=== PATIENT | female | born 1955 | race Caucasian/White ===

== ENCOUNTER 2018-11-14 10:53 | Outpatient (CLI) | payer MEDICARE ==
--- NOTE | 2018-11-28 08:26 | Mammography Report ---
Reason: ENCOUNTER FOR SCREENING MAMMOGRAM FOR MALIGNANT Procedure Date: 11/14/2018 Accession Number: [id number] / [id number] Procedure: [facility] - Screening Mammo Impl w/Brandan CPT Code: FULL RESULT: EXAM: Screening Mammo Implant w/Brandan DATE: 11/14/2018 11:44 AM CLINICAL HISTORY: Family history breast cancer in mother at age 50. No reported personal history. Routine screening. TECHNIQUE: Bilateral CC and MLO views were obtained. COMPARISON: Unable to be obtained despite two-week attempt. New imaging baseline. FINDINGS: Bilateral breasts: The breasts demonstrate heterogeneously dense fibroglandular parenchyma bilaterally. There are intact subpectoral saline implants bilaterally. There are no suspicious masses, calcifications or areas of distortion. IMPRESSION: Benign findings RECOMMENDATION: Routine annual screening unless otherwise clinically indicated. BI-RADS CATEGORY 2: Benign findings STANDARD QUALIFYING STATEMENTS: 1. This examination was not reviewed with the aid of Computer-Aided Detection (CAD). 2. A negative or benign imaging report should not preclude biopsy if clinically suspicious findings are present. 3. Dense breasts may obscure an underlying neoplasm. 4. This examination was reviewed with the aid of 3D breast imaging (tomosynthesis).
== END 2018-11-14 10:54 | disposition home or self-care (01) ==
LOC: DI 10:53
PROVIDERS: ATTEND Registered Nurse
DX: Z12.31 Encounter for screening mammogram for malignant neoplasm of breast (principal); Z80.3 Family history of malignant neoplasm of breast
CPT/HCPCS: 77063; 77067

== ENCOUNTER 2020-01-12 16:34 | Outpatient (CLI) | payer MEDICARE | END 2020-01-12 16:35 | disposition home or self-care (01) | LOC: COV 16:34 | PROVIDERS: ATTEND Family Medicine | DX: R05 Cough (principal); R50.9 Fever, unspecified | CPT/HCPCS: 81599; U0002 ==

== ENCOUNTER 2023-04-02 08:12 | Outpatient (CLI) | payer MEDICARE ==
[~2023-04-02 08:12] MED LIST: GADOBUTROL 7.5 MMOL/7.5 ML VIAL ONE
[2023-04-02 09:02] LABS: CREATININE 0.8 mg/dL (0.4-1.0)
[2023-04-02] MEDS ORDERED: GADOBUTROL 7.5 MMOL/7.5 ML VIAL IVP ONE (10:27)
--- NOTE | 2023-04-02 11:28 | MRI Report ---
PROCEDURE: BRAIN W/WO INDICATIONS: ATYPICAL FACIAL PAIN CONTRAST: GADAVIST 5.7 TECHNIQUE: Noncontrast axial T1 spin echo, axial T2 fast spin echo, sagittal and axial FLAIR, coronal T2 fast sp in echo, axial gradient echo, axial diffusion and ADC through the brain. After the administration of contrast, axial and coronal T1 spin echo with fat saturation through the brain. COMPARISON: None. FINDINGS: Image quality: Excellent. CSF spaces: Basal cisterns are patent. No extra-axial fluid collections. Ventricles are normal in size and shape. Brain: No midline shift. No intracranial bleeds or masses. No abnormal intracranial enhancement. There is cerebral volume loss for age. There is periventricular white matter chronic small vessel is chemic change. The brainstem appears normal. Diffusion-weighted images demonstrate no acute ischemi c insults. No chronic ischemic insults. Normal intravascular flow voids are present. The facial ne rve is within normal limits. Skull and face: Calvarial marrow is normal in signal. Orbits appear normal. Sinuses: Sinuses and mastoids appear clear. IMPRESSION: 1. Mild volume loss. Minimal small vessel ischemic disease. 2. No acute process. No recent infarct. 3. No explanation for facial pain. Reviewed by: Urban Diaz MD on 04/02/2023 11:26 AM PDT Approved by: Urban Diaz MD on 04/02/2023 11:26 AM PDT Station ID: [id number]
== END 2023-04-02 08:13 | disposition home or self-care (01) ==
LOC: LAB 08:12
PROVIDERS: ATTEND Oral & Maxillofacial Surgery
DX: G50.1 Atypical facial pain (principal); G31.89 Other specified degenerative diseases of nervous system; I67.82 Cerebral ischemia
CPT/HCPCS: 36415; 70553; 82565; A9585